=== PATIENT | female | born 1960 | race Caucasian/White ===

== ENCOUNTER → 2023-02-28 | Outpatient (CLI) | payer MEDICARE, SELFPAY ==
--- NOTE | 2023-02-28 12:49 | CT_ITS ---
CT RIGHT LOWER EXTREMITY WITH 3-D IMAGING CLINICAL INDICATION: RT KNEE JOJO TECHNIQUE: Axial CT images of the RIGHT lower extremity was performed without IV contrast material. Coronal and sagittal reformats were provided. RADIATION DOSAGE (If Supplied By Facility): CTDIvol = ( 26.12 ) mGy, DLP = ( 1688.36 ) mGycm COMPARISON: FINDINGS: Bones: Imaging of the right hip joint was obtained. No significant abnormality is seen. Imaging of the right knee joint was obtained. There is a marked degree of joint space narrowing involving the medial compartment of the knee joint with subchondral sclerosis and the degenerative spur formation involving the medial femoral condyle as well as the medial tibial plateau. This is also a moderate degree of but joint space narrowing with degenerative spur formation of the patellofemoral joint. Soft Tissues: Small knee joint effusion. The superficial soft tissues are unremarkable without evidence of edema, hematoma, or foreign body. CT/Extremity Lower without Contra IMPRESSION: Marked degree of joint space narrowing involving the medial compartment of the knee joint with subchondral sclerosis and degenerative spur formation involving the medial femoral condyle as well as the medial tibial plateau. Electronically Signed: Sylvester Romero MD at 9:58 EDT ,
== END | disposition home or self-care (01) ==
LOC: CT 12:47
PROVIDERS: PCP Nurse Practitioner Family; Referring Provider Specialist; Visit Provider Specialist
DX: M17.31 Unilateral post-traumatic osteoarthritis, right knee (principal); G89.29 Other chronic pain
CPT/HCPCS: 73700